=== PATIENT | female | born 1990 | race Two or more races ===

== ENCOUNTER 2022-05-17 01:26 | Emergency (ER) | payer SELFPAY ==
[~2022-05-17] VITALS: Ht 157.5 cm; Wt 115.0 kg
[2022-05-17 03:30] VITALS: BP 130/76
[2022-05-17] MEDS ORDERED: AMOX500T3 PO (04:18)
[2022-05-17] MEDS ORDERED: IBUP800T26 PO (04:18)
[2022-05-17] MEDS ORDERED: IBUPROFEN 800 MG TAB PO ONE ×2 (04:30)
== END 2022-05-17 04:39 | disposition home or self-care (01) ==
LOC: ER 01:26
DX: H66.92 Otitis media, unspecified, left ear (principal)

== ENCOUNTER 2022-09-11 18:55 | Emergency (ER) | payer MEDICAID, OTHER ==
[~2022-09-11] VITALS: Ht 157.5 cm; Wt 122.7 kg
[~2022-09-11 18:55] MED LIST: AMOX500T3 PO; IBUP-1455 PO
[2022-09-11 20:25] LABS: Hematocrit 40.1 % (36.0-46.0); Hemoglobin 13.3 g/dL (12.2-16.2); Lymphocytes # (auto) 1.4 10 ^3/uL (0.4-5.4); Nucleated Red Blood Cells % 0.1 %
[2022-09-11 20:28] LABS: Basophils # (auto) 0.2 10 ^3/uL (0-0.2); Basophils % (auto) 0.8 % (0.0-2.0); Eosinophils # (auto) 0.1 10 ^3/uL (0-0.8); Eosinophils % (auto) 0.3 % (0.0-7.0); Lymphocytes % (auto) 7.1 % (10.0-50.0); Mean Corpuscular Hemoglobin 26.8 pg (28.0-32.0); Mean Corpuscular Hgb Conc. 33.2 g/dL (32.0-36.0); Mean Corpuscular Volume 80.7 fL (80.0-100.0); Monocytes # (auto) 1.3 10 ^3/uL (0-1.3); Monocytes % (auto) 6.3 % (0.0-12.0); Neutrophils # (auto) 17.3 10 ^3/uL (1.6-8.6); Neutrophils % (auto) 85.5 % (37.0-80.0); Red Blood Cells 4.98 10^6/uL (4.0-5.20); Red Cell Distribution Width 14.2 % (11.8-14.3); White Blood Cell 20.2 10^3/uL (4.4-10.8)
[2022-09-11 20:47] LABS: Albumin 2.9 g/dL (3.4-5.0); Calcium 8.8 mg/dL (8.5-10.1); Potassium 4.2 mmol/L (3.5-5.1)
[2022-09-11 20:50] LABS: BUN/Creatinine Ratio 9.8 (10.0-20.0); Bilirubin, Total 0.4 mg/dL (0.2-1.0); Total Protein 7.7 g/dL (6.4-8.2)
[2022-09-11] MEDS ORDERED: HYDROcodone-ACET 5/325MG TAB PO ONE (22:00)
[2022-09-11] MEDS ORDERED: TETANUS-DIPTH-ACEL PERTUSSIS 0.5ML SYR Tdap IM ONE (22:00)
[2022-09-11] MEDS ORDERED: CLINDAMYCIN HCL 150 MG CAP PO ONE (22:00)
[2022-09-11] MEDS ORDERED: DexAMETHasone SOD PHOS 10MG/1ML VIAL INJ IM ONE (22:00)
[2022-09-11] MEDS ORDERED: cefTRIAXone SOD 1,000 MG VL IM ONE (22:00)
[2022-09-11] MEDS ORDERED: LIDOCAINE 1% HCL (LOCAL ANESTH.) INJ 20ML MDV ONE (22:32)
[2022-09-11 22:39] LABS: Lactic Acid w/Reflex 2.3 mmol/L (0.4-2.0)
[2022-09-11 22:47] VITALS: BP 155/91; PULSE 105; RESP 19; TEMP 100; O2SAT 95
[2022-09-11] MEDS ORDERED: SODIUM CHLORIDE 0.9% 1,000 ML IV ONE (23:15)
[2022-09-12] MEDS ORDERED: IBUP-1455 PO (01:21)
[2022-09-12] MEDS ORDERED: ZOFR4T PO (01:21)
[2022-09-12] MEDS ORDERED: AUG875T PO (01:21)
[2022-09-12] MEDS ORDERED: CLIN300C70 PO (01:21)
== END 2022-09-12 01:32 | disposition home or self-care (01) ==
LOC: ER 18:55
DX: L02.212 Cutaneous abscess of back [any part, except buttock and flank] (principal); D72.829 Elevated white blood cell count, unspecified; R74.02 Elevation of levels of lactic acid dehydrogenase [LDH]
CPT/HCPCS: 36415; 80053; 83605; 85025; 90471; 90715; 96360; 96372; 99284; J0696; J1100; J2001; J7030; 96361

== ENCOUNTER 2023-06-28 20:35 | Emergency (ER) | payer MEDICAID ==
[~2023-06-28] VITALS: Ht 157.5 cm; Wt 107.4 kg
[~2023-06-28 20:35] MED LIST changes: +AUG875T PO; +CLIN1CAP70 PO; +ZOFR4T PO
[2023-06-28 21:47] LABS: Basophils # (auto) 0.1 10 ^3/uL (0-0.2); Basophils % (auto) 0.7 % (0.0-2.0); Eosinophils # (auto) 0.2 10 ^3/uL (0-0.8); Eosinophils % (auto) 1.5 % (0.0-7.0); Hematocrit 41.2 % (36.0-46.0); Hemoglobin 13.9 g/dL (12.2-16.2); Lymphocytes # (auto) 3.4 10 ^3/uL (0.4-5.4); Lymphocytes % (auto) 23.4 % (10.0-50.0); Mean Corpuscular Hemoglobin 27.5 pg (28.0-32.0); Mean Corpuscular Hgb Conc. 33.7 g/dL (32.0-36.0); Mean Corpuscular Volume 81.8 fL (80.0-100.0); Monocytes # (auto) 0.7 10 ^3/uL (0-1.3); Monocytes % (auto) 5.1 % (0.0-12.0); Neutrophils % (auto) 69.3 % (37.0-80.0); Red Blood Cells 5.04 10^6/uL (4.0-5.20); Red Cell Distribution Width 14.9 % (11.8-14.3); White Blood Cell 14.5 10^3/uL (4.4-10.8)
[2023-06-28 21:52] LABS: Urine Bacteria FEW /hpf (None Seen); Urine Blood 3+ /uL (Negative); Urine Clarity Turbid (Clear); Urine Color STRAW (Yellow); Urine Mucus FEW (None Seen); Urine Protein, UAD TRACE (Negative); Urine Specific Gravity 1.036 (1.001-1.035); Urine Urobilinogen Normal (Negative); Urine WBC 42 /hpf (0 - 5)
[2023-06-28 22:04] LABS: Alanine Aminotransferase 14 U/L (7-40); Albumin 4.6 g/dL (3.2-4.8); Alkaline Phosphatase 86 U/L (46-116); Anion Gap 5 (5-15); Aspartate Aminotransferase 10 U/L (13-40); BUN/Creatinine Ratio 12.2 (10.0-20.0); Blood Urea Nitrogen 9 mg/dL (9-23); Calcium 9.9 mg/dL (8.5-10.1); Carbon Dioxide 27 mmol/L (20-30); Chloride 101 mmol/L (98-107); Glucose 281 mg/dL (74-106); Potassium 3.8 mmol/L (3.5-5.1); Sodium 133 mmol/L (136-145)
[2023-06-28 22:05] LABS: Bilirubin, Total 0.2 mg/dL (0.2-1.0); Total Protein 7.7 g/dL (5.7-8.2)
[2023-06-29 01:05] VITALS: BP 155/85; PULSE 84; RESP 20; TEMP 98.9
[2023-06-29 01:07] VITALS: O2SAT 98
== END 2023-06-29 01:10 | disposition home or self-care (01) ==
LOC: ER 20:35
DX: O20.9 Hemorrhage in early pregnancy, unspecified (principal); R10.2 Pelvic and perineal pain; Z3A.01 Less than 8 weeks gestation of pregnancy; Z79.899 Other long term (current) drug therapy
CPT/HCPCS: 36415; 76801; 76817; 80053; 81001; 84702; 85025